=== PATIENT | female | born 1980 | race Caucasian/White ===

== ENCOUNTER 2019-04-12 07:56 | Day surgery (SDC) | payer OTHER ==
[~2019-04-12 07:56] MED LIST: Buffered Lidocaine 1% SYRIN* 1 ML/SYRINGE INTRADERM ONE; Dexamethasone TAB* 4 MG PO ONE; DiMENhydriNATE IV* 50 MG/ML VIAL IV PUSH PRN; Famotidine IV* 10 MG/ML 2 ML (20 mg) IV ONE; HYDROmorphone INJ1* 1 MG/ML SYRINGE IV PRN; Lactated Ringers 1000 ML Bag* 1,000 ML IV SCH; Naloxone* 0.4 MG/ML 1 ML VIAL IV PRN; Ondansetron ODT TAB* 4 MG PO ONE; PROCHLORPERAZINE INJ 5 MG/ML 2 ML VIAL IV PRN; fentaNYL* 50 MCG/ML 2 ML VIAL (100 MCG VIAL) IV PRN; oxyCODONE TAB* 5 MG TAB PO PRN
[2019-04-12] MEDS ORDERED: Ondansetron ODT TAB* 4 MG ONE (08:19)
[2019-04-12] MEDS ORDERED: Famotidine IV* 10 MG/ML 2 ML (20 mg) ONE (08:20)
[2019-04-12] MEDS ORDERED: Dexamethasone TAB* 4 MG ONE (08:20)
[2019-04-12] MEDS ORDERED: fentaNYL* 50 MCG/ML 2 ML VIAL (100 MCG VIAL) ONE (09:36)
[2019-04-12] MEDS ORDERED: Midazolam* 1 MG/ML 5 ML VIAL (5 MG) ONE (09:36)
[2019-04-12] MEDS ORDERED: KETAMINE HCL* 50 MG/ML 10 ML VIAL ONE (09:36)
[2019-04-12] MEDS ORDERED: Propofol* 500 MG/50 ML BTL ONE ×2 (09:37→11:06)
[2019-04-12] MEDS ORDERED: Lidocaine 2% PF * 5 ML VIAL ONE ×2 (09:37→11:06)
[2019-04-12] MEDS ORDERED: Lidocaine 1% INJ* 10 MG/ML 30 ML SDV ONE (10:33)
[2019-04-12] MEDS ORDERED: Ketorolac INJ* 30 MG/ML 1 ML VIAL ONE (11:06)
[2019-04-12 12:52] VITALS: BP 125/79
--- NOTE | 2019-04-12 22:02 | OP ---
DATE OF OPERATION: 04/12/19 - [facility] DATE OF : 76 SURGEON: Jose Don MD. ANESTHESIOLOGIST: Dr. Ramos. ANESTHESIA: Sedation with local anesthesia. PRE-OP DIAGNOSIS: Multiple epidermoid vulvar and perineal cysts. POST-OP DIAGNOSIS: Multiple epidermoid vulvar and perineal cysts. OPERATIVE PROCEDURE: Excision of vulvar cysts. ESTIMATED BLOOD LOSS: Less than 20 cc. FINDINGS: Multiple epidermoid cysts throughout the vulva, the largest is approximately 3 cm in the left labia majora, the next largest was on the left perineum between the introitus and the anus towards the patient's left. This measured approximately 2 cm. There was another 2-cm cyst on the right labia majora, and there were 2 additional approximately 1 cm cysts on the left labia majora. COMPLICATIONS: None. COUNTS: Sponge, lap, and needle count correct x2. CONDITION: The patient was brought to recovery room awake and in stable condition. DESCRIPTION OF PROCEDURE: Urine test was confirmed to be negative. General anesthesia was given. When the patient received anesthesia, the patient was prepped and draped in the usual sterile fashion in the dorsal lithotomy position. Time-out was performed. The skin over the cysts was excised. The cysts were removed in their entirety. The largest cyst was sent intact within the cyst wall to Pathology. The smaller cysts were opened and found to have a thick white material. In each area the cyst was removed, the skin was reapproximated with 4-0 Vicryl. Excellent hemostasis was obtained and the patient was brought to the recovery room awake and in stable condition. [id number]/[facility] #: [id number] [facility]ENTER[facility]iley
== END 2019-04-12 13:00 | disposition home or self-care (01) ==
LOC: OR 07:56
PROVIDERS: ATTEND Obstetrics & Gynecology
DX: N90.7 Vulvar cyst (principal); L72.8 Other follicular cysts of the skin and subcutaneous tissue; K64.9 Unspecified hemorrhoids; K59.00 Constipation, unspecified; F17.210 Nicotine dependence, cigarettes, uncomplicated
CPT/HCPCS: 81025; 88304; A9270-GY; J1885; J2250; J2704; J3010; J8540